=== PATIENT | female | born 1970 | race Caucasian/White ===

== ENCOUNTER 2016-07-10 12:53 | Emergency (ER) | payer OTHER ==
[2016-07-10 13:10] VITALS: RESP 16; TEMP 98.1; O2SAT 98
[2016-07-10] MEDS ORDERED: TDAP ADULT 0.5 ML INJ (BOOSTRIX) IM ONE (13:40)
--- NOTE | 2016-07-10 13:42 | UCPHY ---
H & P Time Seen by Provider: 07/10/16 13:07 Patient Type: Established HPI/ROS: CHIEF COMPLAINT: Painful lump on chest wall HPI: The patient is a 45-year-old female with no significant past medical history. She complains of approximately 2 days of a red painful area just medial to her axilla on the left side. She knows of no known bite or trauma to that area. No fever. The patient has no known history of breast cancer. REVIEW OF SYSTEMS: Aside from elements discussed in the HPI, a comprehensive 10-point review of systems was reviewed and is negative. PMH: None significant. SOCIAL HISTORY: . Has 2 children. FAMILY HISTORY: Reviewed, noncontributory PHYSICAL EXAM: General:Patient is alert, in no acute distress. ENT:Eyes are normal to inspection. ENT inspection normal. Neck: Normal inspection. Full range of motion. Skin: An area of erythema, tenderness and fluctuance during approximately 2 cm is present just medial to the left axilla. There is minimal surrounding erythema. No other skin changes noted.. Extremities: Normal appearance. Full range of motion. Neuro: Oriented x3. Normal motor function. Normal sensory function. Smoking Status: Never smoked Constitutional: Initial Vital Signs Temperature (C) 36.7 C 07/10/16 13:07 Heart Rate 90 07/10/16 13:07 Respiratory Rate 16 07/10/16 13:07 Blood Pressure 106/51 L 07/10/16 13:07 O2 Sat (%) 98 07/10/16 13:07 O2 Delivery Mode Room Air Allergies/Adverse Reactions: No Known Allergies Allergy (Verified 07/10/16 13:07) Home Medications: Medication Instructions Recorded Miscellaneous Medical Supply [NO 1 ea MISC AD 10/17/11 HOME MEDS] Cephalexin [Keflex] 500 mg PO TID #21 cap 07/10/16 MDM/Departure - MDM Procedures: Procedure: Abscess drainage. The patient's abscess was located on the left chest wall. I obtained verbal consent from the patient to drain the abscess who was informed about the possibility of bleeding and pain. The abscess was incised with [a scalpel] and a small amount of purulent drainage was expressed. The patient tolerated the procedure well. Care was taken to avoid any puncture into the deep space/lung. The procedure was performed by myself. Medications Given: Discontinued Medications Diphtheria/Tetanus/Acell Pertussis (Boostrix) 0.5 ml IM .ONCE ONE Stop: 07/10/16 13:41 Last Admin: 07/10/16 13:51 Dose: Not Given ED Course/Re-evaluation: This patient presents with what appears to be a small cutaneous abscess of the left chest wall. The etiology is unclear. Given location near breast issue as well as the patient's own concern for possible breast cancer with a history of some abnormalities of her left breast, the possibility this represents some clinical manifestation of breast cancer is present and I explained this to the patient. As result of this, I performed an I and D to obtain fluid sample for culture, but did not aggressively incise the wound nor pack it in case further testing at this area needs to be done. I will prescribe the patient Keflex. She understands the need for prompt follow-up. - Depart Disposition: Home, Routine, Self-Care Clinical Impression: Abscess Condition: Good Instructions: Abscess Follow-up (ED) Additional Instructions: Follow-up with her primary physician within 1 week for further testing. Call back to the urgent care on Tuesday and ask for the results of your wound culture. Return to the emergency department or urgent care immediately for fever, increasing redness, swelling or other concerns. Okay to shower as normal. You might want to keep a dressing over the area for the next 24 hours to ensure that any bleeding or discharge does not get on your clothes. Prescriptions: Cephalexin [Keflex] 500 mg PO TID #21 cap Referrals: MUNIR GARCIA [Primary Care Provider] - As per Instructions - PQRS PQRS Measurement: 134: Depression screening and followup, PRIME MD-PHQ2 (12 years and older) Over the last 2 weeks, how often have you been bothered by any of the following problems? 1. Feeling down, depressed, or hopeless? 2. Little interest or pleasure in doing things? Patient answered no to both 1 and 2 130: Documentation of medications. Reviewed all patient medications, doses, route and frequency. 226: Do you smoke? No. 51: 18 years old and older with diagnosis of COPD, spirometry performance. Spirometry not performed; equipment not available. Patient has no history of COPD 52: 18 years old and older with COPD and symptoms of COPD or FEV1<60% predicted prescribed a B Agonist. Spirometry not performed; equipment not available.
[2016-07-10 13:43] VITALS: BP 106/55; PULSE 88
== END 2016-07-10 13:51 | disposition home or self-care (01) ==
LOC: CED 12:53
PROC: 0H95XZZ Drainage of Chest Skin, External Approach (ICD-10-PCS; principal; 2016-07-10)
DX: L02.213 Cutaneous abscess of chest wall (principal)
CPT/HCPCS: 99214-PO; G0463-PO